=== PATIENT | female | born 1965 | race Caucasian/White ===

== ENCOUNTER 2017-01-29 12:28 | Emergency (ER) | payer OTHER | END 2017-01-29 13:30 | disposition home or self-care (01) | LOC: ER 12:28 | PROC: 3E0234Z Introduction of Serum, Toxoid and Vaccine into Muscle, Percutaneous Approach (ICD-10-PCS; principal; 2017-01-29) | DX: S81.831A Puncture wound without foreign body, right lower leg, initial encounter (principal); W45.8XXA Other foreign body or object entering through skin, initial encounter; F17.210 Nicotine dependence, cigarettes, uncomplicated; Z88.5 Allergy status to narcotic agent; Z88.6 Allergy status to analgesic agent; Z79.899 Other long term (current) drug therapy; Z23 Encounter for immunization | CPT/HCPCS: 90471; 90715; 99282-25 ==

== ENCOUNTER 2017-02-28 08:22 | Emergency (ER) | payer OTHER | END 2017-02-28 09:08 | disposition home or self-care (01) | LOC: ER 08:22 | DX: J32.9 Chronic sinusitis, unspecified (principal); H92.09 Otalgia, unspecified ear; R05 Cough; J02.9 Acute pharyngitis, unspecified; Z79.899 Other long term (current) drug therapy; Z79.891 Long term (current) use of opiate analgesic; Z88.5 Allergy status to narcotic agent; Z88.6 Allergy status to analgesic agent ==

== ENCOUNTER 2017-04-30 19:31 | Emergency (ER) | payer OTHER | END 2017-04-30 21:29 | disposition home or self-care (01) | LOC: ER 19:31 | DX: M54.9 Dorsalgia, unspecified (principal); G89.29 Other chronic pain; Z88.5 Allergy status to narcotic agent; Z88.8 Allergy status to other drugs, medicaments and biological substances; Z79.899 Other long term (current) drug therapy | CPT/HCPCS: 96372; 99282-25; J1170 ==